=== PATIENT | female | born 1950 | race Hispanic/Latino ===

== ENCOUNTER 2018-08-15 02:04 | Emergency (ER) | payer OTHER, MEDICARE ==
[~2018-08-15 02:04] MED LIST: ASPI-1181 PO; ATOR20TA65 PO; CLOP75TA14 PO; FURO40TA7 PO; GABA-529 PO; LINA5TAB PO; LISI-617 PO; MELA5TAB14 PO; METF-446 PO; METO50TA18 PO; PANT40TA25 PO; POTA8TAB7 PO; VITAMIN B12 PO
== END 2018-08-15 02:23 | disposition home or self-care (01) ==
LOC: EDH 02:04
DX: F43.22 Adjustment disorder with anxiety (principal); R53.1 Weakness
CPT/HCPCS: 93005

== ENCOUNTER → 2019-09-08 | Outpatient (CLI) | payer OTHER, MEDICARE ==
[~2019-09-08] VITALS: Ht 152.4 cm; Wt 66.7 kg
[~2019-09-08] MED LIST changes: +REGADENOSON 0.4 MG/5 ML PF SYG IVP SCH
== END | disposition home or self-care (01) ==
LOC: SHCH 08:22
PROVIDERS: ATTEND Internal Medicine Cardiovascular Disease
DX: I44.7 Left bundle-branch block, unspecified (principal)
CPT/HCPCS: 78452; 93017; 96374; A9500 ×2; J2785